=== PATIENT | female | born 1975 | race Caucasian/White ===

== ENCOUNTER 2017-07-23 12:46 | Emergency (ER) | payer OTHER, MEDICAID ==
[~2017-07-23] VITALS: Ht 167.6 cm; Wt 50.3 kg
[~2017-07-23 12:46] MED LIST: BUTA1CAP39 PO; IBP800T; MULT-974 PO; OXYC-197 PO; TPR25T PO; TRAM-21; VENL37.52 PO; VNL75T PO; [UNRECOGNIZED DRUG - REMARK]
--- OUTSIDE RECORDS SUMMARY | 2017-07-23 12:52 | XMS REPORT ---
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 31354577 Problem Other malaise and fatigue 780.79 Active 087158638 Problem Sciatica 724.3 Active 53497130 Problem Sebaceous cyst 706.2 Active 084206314 ALLERGIES Substance Reaction Event Type Date Status Penicillin Unknown Non Drug Allergy Jul, Active Sulfa Unknown Non Drug Allergy Jul, Active Codeine Unknown Non Drug Allergy Jul, Active SOCIAL HISTORY No smoking Hx information available PLAN OF CARE Activity Details Follow Up prn Reason:1 hr fillings VITAL SIGNS MEDICATIONS Medication Instructions Dosage Frequency Start Date End Date Duration Status Multivitamin Active Effexor XR 37.5 mg take 1 capsule (37.5 mg) by oral route once daily with food Dec, Active Topamax Active Phenobarbital Active PreviDent 5000 Dry Mouth 1.1 % Dental once daily brush with 24h Jul, 30 days Active RESULTS No Results PROCEDURES Procedure Date Ordered Related Diagnosis Body Site RESIN COMPOS - 3 SURFACES ANTERIOR Aug 12, 2016 RESIN COMPOS - 3 SURFACES ANTERIOR Aug 12, 2016 Billing Notes on claim Aug 12, 2016 IMMUNIZATIONS No Known Immunizations
--- OUTSIDE RECORDS SUMMARY | 2017-07-23 12:52 | XMS REPORT ---
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
--- OUTSIDE RECORDS SUMMARY | 2017-07-23 12:52 | XMS REPORT ---
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 89833318 Problem Other malaise and fatigue 780.79 Active 936073278 Problem Sciatica 724.3 Active 01152899 Problem Sebaceous cyst 706.2 Active 079206513 ALLERGIES Substance Reaction Event Type Date Status Penicillin Unknown Non Drug Allergy Jul, Active Sulfa Unknown Non Drug Allergy Jul, Active Codeine Unknown Non Drug Allergy Jul, Active SOCIAL HISTORY No smoking Hx information available PLAN OF CARE Activity Details Follow Up prn Reason:SRP/Restorative VITAL SIGNS Height 65 in 2016-08-12 Heart Rate 77 bpm 2016-08-12 Blood pressure systolic 110 mmHg 2016-08-12 Blood pressure diastolic 68 mmHg 2016-08-12 MEDICATIONS Medication Instructions Dosage Frequency Start Date End Date Duration Status Effexor XR 37.5 mg take 1 capsule (37.5 mg) by oral route once daily with food Dec, Active Multivitamin Active Topamax Active Phenobarbital Active RESULTS No Results PROCEDURES Procedure Date Ordered Related Diagnosis Body Site Periodontal scaling and root Aug 12, 2016 Periodontal scaling and root Aug 12, 2016 Billing Notes on claim Aug 12, 2016 IMMUNIZATIONS No Known Immunizations
--- OUTSIDE RECORDS SUMMARY | 2017-07-23 12:52 | XMS REPORT ---
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 11952283 Problem Depressive disorder, not elsewhere classified 311 Active 84021886 Problem Other malaise and fatigue 780.79 Active 811878765 Problem Sebaceous cyst 706.2 Active 608175817 Problem Sciatica 724.3 Active 06598060 Problem Anxiety state, unspecified 300.00 Active 095454086 ALLERGIES Substance Reaction Event Type Date Status Penicillin Unknown Non Drug Allergy Jun, Active Sulfa Unknown Non Drug Allergy Jun, Active Codeine Unknown Non Drug Allergy Jun, Active SOCIAL HISTORY No smoking Hx information available PLAN OF CARE VITAL SIGNS Height 65 in 2016-06-25 Blood pressure systolic 107 mmHg 2016-06-25 Blood pressure diastolic 69 mmHg 2016-06-25 MEDICATIONS Medication Instructions Dosage Frequency Start Date End Date Duration Status Multivitamin Active Effexor XR 37.5 mg take 1 capsule (37.5 mg) by oral route once daily with food Dec, Active Topamax Active Phenobarbital Active RESULTS No Results PROCEDURES Procedure Date Ordered Related Diagnosis Body Site COMP ORAL EVALUATION - NEW/EST PT Jun 25, 2016 INTRAORL-PERIAPICAL 1 FILM 95036 Jun 25, 2016 PANORAMIC FILM SEE ALSO CODE 97250 Jun 25, 2016 INTRAORL-PERIAPICAL EA ADD FILM Jun 25, 2016 INTRAORL-PERIAPICAL EA ADD FILM Jun 25, 2016 BITEWINGS - FOUR FILMS Jun 25, 2016 INTRAORL-PERIAPICAL EA ADD FILM Jun 25, 2016 IMMUNIZATIONS No Known Immunizations
--- OUTSIDE RECORDS SUMMARY | 2017-07-23 12:53 | XMS REPORT | Continuity of Care Document ---
Author Author [facility] Address Unknown Phone Unavailable Allergies Active Description Code Type Severity Reaction Onset Reported/Identified Relationship to Patient Clinical Status Yes codeine [id number] Drug Allergy Mild N/A 12/14/2008 Yes morphine [id number] Drug Allergy Mild N/A 12/14/2008 Yes Penicillins [id number] Drug Allergy Mild N/A 12/14/2008 Yes Sulfa (Sulfonamide Antibiotics) [id number] Drug Allergy Mild N/A 2008 Yes fentanyl [id number] Drug Allergy Unknown ITCHING 04/09/2014 Yes hydrocodone [id number] Drug Allergy Severe SEVERE ITCHING 06/28/2015 Yes tramadol [id number] Drug Allergy Severe SEVERE ITCHING 06/28/2015 Yes hydrocodone [id number] Drug Allergy Severe SEVERE ITCHING, 07/04/2015 Yes meperidine [id number] Drug Allergy Mild HIVES 07/04/2015 Medications There is no data. Problems Date Dx Coded Attending Type Code Diagnosis Diagnosed By 10/18/2008 MEGAN FISHER 625.9 FEMALE PELVIC PAIN 10/18/2008 JERROD LOZADA APRN 625.9 FEMALE PELVIC PAIN 09/08/2009 MEGAN FISHER 784.1 throat pain 09/08/2009 JERROD LOZADA APRN 784.1 throat pain 11/17/2009 MEGAN FISHER 785.6 LYMPH NODES ENLARGEMENT 11/17/2009 JERROD LOZADA APRN 785.6 LYMPH NODES ENLARGEMENT 02/06/2010 MEGAN FISHER 796.3 NONSPECIFIC LOW BLOOD PRESSURE READING 02/06/2010 JERROD LOZADA APRN 796.3 NONSPECIFIC LOW BLOOD PRESSURE READING 03/01/2010 MEGAN FISHER V01.84 exposed to meningococcus 03/01/2010 MEGAN FISHER V05.3 HEPATITIS B VACCINE 03/01/2010 MEGAN FISHER V06.5 Vaccines Prophylactic Need Against Td 03/01/2010 MEGAN FISHER V70.5 visit for: pre-employment physical 03/01/2010 JERROD LOZADA APRN V01.84 exposed to meningococcus 03/01/2010 LUPEL COMPUTER REPAIRERBURT EchevarriaA L V05.3 HEPATITIS B VACCINE 03/01/2010 LUPEL COMPUTER REPAIRERBURT EchevarriaA Saundra V06.5 Vaccines Prophylactic Need Against Td 03/01/2010 LUPEL BURT LAGUNASA Saundra V70.5 visit for: pre-employment physical 04/03/2010 MEGAN FISHER V05.3 Need For Vaccination Hepatitis B 04/03/2010 BURT LOZADA APRNA Saundra V05.3 Need For Vaccination Hepatitis B 11/23/2010 MEGAN FISHER 296.90 MOOD DISORDER 11/23/2010 JERROD LOZADA APRN 296.90 MOOD DISORDER 05/07/2011 MEGAN FISHER 386.30 LABYRINTHITIS UNSPECIFIED 05/07/2011 JERROD LOZADA APRN 386.30 LABYRINTHITIS UNSPECIFIED 05/15/2011 MEGAN FISHER 465.9 UPPER RESPIRATORY INFECTION 05/15/2011 BURT LOZADA APRNA L 465.9 UPPER RESPIRATORY INFECTION 07/08/2011 MEGAN FISHER 844.9 SPRAIN/STRAIN KNEE/LEG 07/08/2011 BURT LOZADA APRNA Saundra 844.9 SPRAIN/STRAIN KNEE/LEG 08/12/2011 MEGAN FISHER 706.2 SEBACEOUS CYST 08/12/2011 JERROD LOZADA APRN 706.2 SEBACEOUS CYST 08/14/2011 MEGAN FISHER V58.31 WOUND DRESSING 08/14/2011 JERROD LOZADA APRN V58.31 WOUND DRESSING 08/19/2011 MEGAN FISHER V58.32 SUTURE REMOVAL 08/19/2011 JERROD LOZADA APRN V58.32 SUTURE REMOVAL 08/22/2011 MEGAN FISHER 717.7 CHONDROMALACIA OF PATELLA 08/22/2011 JERROD LOZADA APRN 717.7 CHONDROMALACIA OF [place]LLA 09/11/2011 MEGAN FISHER 780.79 MALAISE AND FATIGUE 09/11/2011 KIERRA COMPUTER REPAIRERJERROD Echevarria L 780.79 MALAISE AND FATIGUE 01/04/2014 JERROD LOZADA APRN L 300.00 ANXIETY STATE UNSPECIFIED 01/04/2014 JERROD LOZADA APRN L 311 DEPRESSIVE DISORDER NOT ELSEWHERE CLASSIFIED 01/04/2014 JERROD LOZADA APRN 724.3 SCIATICA 04/09/2014 GORDON LEON COMPUTER REPAIRER Ot 346.00 04/09/2014 GORDON LEON COMPUTER REPAIRER Ot 784.0 06/12/2015 Ot 786.50 06/12/2015 Ot 786.50 06/12/2015 Ot 620.2 06/12/2015 Ot 625.9 06/12/2015 Ot 789.09 06/12/2015 Ot V88.01 06/22/2015 CHRISTOPHER DOLAN DO Ot D24.2 07/04/2015 CHRISTOPHER DOLAN DO Ot D24.2 07/04/2015 CHRISTOPHER DOLAN DO Ot N60.92 07/05/2015 ANJELICA DOLAN DOTIE Ot N63 07/05/2015 CHRISTOPHER DOLAN DO Ot Z01.812 07/05/2015 CHRISTOPHER DOLAN DO Ot Z11.2 08/11/2015 Ot 786.50 08/11/2015 Ot 786.50 08/11/2015 Ot 620.2 08/11/2015 Ot 625.9 08/11/2015 Ot 789.09 08/11/2015 Ot V88.01 08/11/2015 CHRISTOPHER DOLAN DO Ot D24.2 08/11/2015 KAMERON DOLAN DOROUTIE Ot N63 08/11/2015 CHRISTOPHER DOLAN DO Ot Z01.812 08/11/2015 ANJELICA DOLAN DOTIE Ot Z11.2 08/23/2015 KAMERON DOLAN DOROUTIE Ot N63 08/23/2015 KAMERON DOLAN DOROUJAMARCUS Ot Z01.812 08/23/2015 CHRISTOPHER DOLAN DO Ot Z11.2 Procedures Code [place] [address] ROUTINE VENIPUNCTURE 01/04/2014 40519 [facility] 01/04/2014 08487 [facility] 01/04/2014 35018 01/04/2014 77867 T[facility] 01/04/2014 79243 [facility] 01/04/2014 Results There is no data. Encounters ACCT No. Visit Date/Time Discharge Status Pt. Type Provider Facility Loc./Unit Complaint [id number] 01/04/2014 08:44:00 01/04/2014 23:59:59 CLS Outpatient JERROD LOZADA APRN [id number] 12/31/2011 08:24:00 12/31/2011 23:59:59 CLS Outpatient FISHER MEGAN [id number] 07/04/2015 07:35:00 07/04/2015 14:15:00 DIS Outpatient CHRISTOPHER DOLAN DO [facility] RAD [id number] 06/28/2015 08:37:00 06/28/2015 23:59:59 CLS Outpatient CHRISTOPHER DOLAN DO [facility] PREOP [id number] 06/12/2015 12:56:00 06/12/2015 23:59:59 CLS Outpatient CHRISTOPHER DOLAN DO [facility] RAD [id number] 04/09/2014 19:22:00 04/09/2014 23:59:59 CLS Emergency GORDON LEON APRN [facility] ER [id number] 05/27/2012 09:50:00 Document Registration [id number] 05/22/2012 06:08:00 Document Registration [id number] 05/19/2012 10:57:00 Document Registration
--- NOTE | 2017-07-23 13:36 | Diagnostic Imaging Report ---
INDICATION: Knee pain. TECHNIQUE: Three views of the right knee were obtained. FINDINGS: The alignment is normal. There is no fracture or dislocation. The soft tissues are unremarkable. IMPRESSION: No focal abnormality in the right knee. Dictated by: Dictated on workstation # [id number]
--- NOTE | 2017-07-23 13:36 | ED Lower Extremity ---
General Chief Complaint: Lower Extremity Stated Complaint: RIGHT KNEE INJ Nursing Triage Note: AMBULATED TO ROOM 04 WITH A LIMP. STATES SHE HIT HER RIGHT KNEE YESTERDAY CAUSING SEVERE PAIN. TOOK IBUPROFEN THIS AM. Nursing Sepsis Screen: No Definite Risk Source: patient Exam Limitations: no limitations History of Present Illness Time seen by provider: 13:36 Initial Comments 41-year-old female patient presents to the emergency department with complaints of right knee pain after hitting her knee on the corner of a side table yesterday evening. Did take ibuprofen at approximately 0630 today. Minimal improvement in pain with ibuprofen. Location Injury Occurred: home Onset: yesterday Severity: severe Pain/Injury Location: right knee Method of Injury: direct blow Modifying Factors: Worse With Movement, Worse With Other (Worse with palpation) Allergies and Home Medications Allergies Coded Allergies: hydrocodone (Verified Allergy, Severe, SEVERE ITCHING, patient can take Percocet, 07/04/15) Per Rani patient is able to take Percocet. 07/04/15 lnd tramadol (Verified Allergy, Severe, SEVERE ITCHING, 06/28/15) Penicillins (Unverified Allergy, Mild, 12/14/08) Sulfa (Sulfonamide Antibiotics) (Unverified Allergy, Mild, 12/14/08) codeine (Unverified Allergy, Mild, 12/14/08) meperidine (Unverified Allergy, Mild, HIVES, 07/04/15) PT RECEIVED DEMEROL IN RECOVERY ROOM FOR PAIN AND SHIVERING. 7 HIVES WERE NOTED ABOVE THE IV SITE AFTER DEMEROL WAS GIVEN AND AREA AROUND IV SITE WAS VERY RED AND PT C/O ITCHING OF HER RIGHT ARM WHERE HIVES WERE LOCATED. morphine (Unverified Allergy, Mild, 12/14/08) fentanyl (Unverified Adverse Reaction, Unknown, ITCHING, 04/09/14) Home Medications No Active Prescriptions or Reported Meds Constitutional: no symptoms reported Musculoskeletal: see HPI, joint pain (Right knee pain), No joint swelling, No muscle pain, No muscle stiffness Skin: change in color (Bruising), No lumps Psychiatric/Neurological: Denies Numbness, Denies Paresthesia, Denies Tingling , Denies Weakness All Other Systems Reviewed Negative Unless Noted: Yes (Negative excepted noted.) Past Tsjrsys-Cewnjg-Lrcxmj Hx Patient Social History Recent Foreign Travel: No Contact w/Someone Who Travel: No Recent Infectious Disease Expo: No Recent Hopitalizations: Yes Surgeries History of Surgeries: Yes (BREAST) Surgeries: Appendectomy, Gallbladder, Hysterectomy Respiratory History of Respiratory Disorde: No Cardiovascular History of Cardiac Disorders: No Neurological History of Neurological Disord: Yes Reproductive System Hx Reproductive Disorders: No Sexually Transmitted Disease: No HIV/AIDS: No Female Reproductive Disorders: Denies NON LICENSED OPERATOR History: Hysterectomy Genitourinary History of Genitourinary Disor: No Gastrointestinal History of Gastrointestinal Di: No Musculoskeletal History of Musculoskeletal Dis: Yes (chronic bilateral knee and low back pain) Endocrine History of Endocrine Disorders: No HEENT History of HEENT Disorders: No Loss of Vision: Bilateral Hearing Impairment: Denies Cancer History of Cancer: No Psychosocial History of Psychiatric Problem: Yes Behavioral Health Disorders: Anxiety Integumentary History of Skin or Integumenta: No Blood Transfusions History of Blood Disorders: No Adverse Reaction to a Blood Tr: No Reviewed Nursing Assessment Reviewed/Agree w Nursing PMH: Yes Family Medical History Significant Family History: No Pertinent Family Hx Physical Exam Vital Signs Vital Sign - Last 12Hours 07/23/17 13:07 Temp 98.0 Pulse 86 Resp 18 B/P (MAP) 123/53 (76) Pulse Ox 98 Capillary Refill : Less Than 3 Seconds General Appearance: WD/WN, no apparent distress Cardiovascular: normal peripheral pulses, no edema Hips: bilateral hip non-tender, bilateral hip normal inspection, bilateral hip normal range of motion, bilateral hip no evidence of injury Legs: bilateral leg non-tender, bilateral leg normal inspection, bilateral leg normal range of motion, bilateral leg no evidence of injury Knees: left knee non-tender, left knee normal inspection, left knee normal range of motion, left knee no evidence of injury, right knee bone tenderness ( generalized mild bony tenderness of the rt knee), right knee ecchymosis ( extremely faint discoloration superior to the patella and just right of midline (patient states this is the bruising that she was describing). no swelling appreciated on exam.), right knee pain, right knee soft tissue tenderness ( generalized soft tissue tenderness noted. ) Ankles: bilateral ankle non-tender, bilateral ankle normal inspection, bilateral ankle normal range of motion, bilateral ankle no evidence of injury Feet: bilateral foot non-tender, bilateral foot normal inspection, bilateral foot normal range of motion, bilateral foot no evidence of injury Neurologic/Tendon: normal sensation, normal motor functions, normal tendon functions, responds to pain, no evidence tendon injury Neurologic/Psychiatric: no motor/sensory deficits, alert, normal mood/affect, oriented x 3 Skin: normal color, warm/dry, other (extremely faint discoloration superior to the right patella and just right of midline (patient states this is the bruising that she was describing).) Progress/Results/Core Measures Results/Orders My Orders Orders - MARGARITA KRAUS Knee, Right, 3 Views (07/23/17 13:15) Acetaminophen Tablet (Tylenol Tablet) (07/23/17 13:45) Vital Signs/I&O Vital Sign - Last 12Hours 07/23/17 13:07 Temp 98.0 Pulse 86 Resp 18 B/P (MAP) 123/53 (76) Pulse Ox 98 Blood Pressure Mean: 76 Diagnostic Imaging Diagonstic Imaging: Xray Plain Films/CT/US/NM/MRI: knee (right knee) Comments TECHNIQUE: Three views of the right knee were obtained. FINDINGS: The alignment is normal. There is no fracture or dislocation. The soft tissues are unremarkable. IMPRESSION: No focal abnormality in the right knee. Dictated on workstation # [id number] Reviewed: Reviewed by Me (radiology report reviewed by me) Departure Communication (Admissions) Progress Notes Diagnostic findings discussed with the patient. 3 inch Sergio wrap placed on the right knee. Plan for discharge to home. Patient to use Tylenol and ibuprofen for pain. Elevate the right knee with using ice packs as needed. Impression Impression: Primary Impression: Contusion of knee Qualified Codes: S80.01XA - Contusion of right knee, initial encounter Disposition: HOME, SELF-CARE Condition: Improved Departure-Patient Inst. Decision time for Depature: 13:53 Referrals: NATHALY SHEA (PCP/Family) Primary Care Physician Patient Instructions: Contusion (DC) Add. Discharge Instructions: All discharge instructions reviewed with patient and/or family. Voiced understanding. Tylenol extra strength [id number] as directed for pain. Ibuprofen 800 mg every 8 hours as needed for pain. Elevate the right knee on pillows. Ice pack for 20 minute intervals as needed for pain for 2-3 days. Activity as tolerated. Sergio wrap as instructed. Follow-up with your family practitioner for recheck as an outpatient if no improvement in symptoms in 7-10 days. Return to the emergency department for worsened symptoms or any other concerns. Scripts No Active Prescriptions or Reported Meds MARGARITA KRAUS Jul 23, 2017 13:36
[2017-07-23] MEDS ORDERED: ACETAMINOPHEN 500 MG TAB (TYLENOL) PO STA (13:45)
[2017-07-23 13:58] VITALS: BP 123/53
== END 2017-07-23 13:56 | disposition home or self-care (01) ==
LOC: EDUNIT# 12:46 → ER 12:48
DX: S80.01XA Contusion of right knee, initial encounter (principal); F41.9 Anxiety disorder, unspecified; Z90.710 Acquired absence of both cervix and uterus; Z90.49 Acquired absence of other specified parts of digestive tract; W22.03XA Walked into furniture, initial encounter
CPT/HCPCS: 73562; 99284